=== PATIENT | male | born 2000 | race African-American/Black ===

== ENCOUNTER 2021-04-30 11:47 | Emergency (ER) | payer SELFPAY ==
[2021-04-30 14:10] LABS: CORONAVIRUS COVID-19 NAA NEGATIVE (NEGATIVE); INFLUENZA A NAA NEGATIVE (NEGATIVE); INFLUENZA B NAA NEGATIVE (NEGATIVE)
== END 2021-04-30 15:57 | disposition home or self-care (01) ==
LOC: MW.ED 11:47
DX: R07.81 Pleurodynia (principal); Z20.822 Contact with and (suspected) exposure to COVID-19
CPT/HCPCS: 0240U; 71101; 99283